=== PATIENT | female | born 2000 | race Caucasian/White ===

== ENCOUNTER → 2018-10-25 | Outpatient (CLI) | payer OTHER ==
[~2018-10-25] MED LIST: IOPAMIDOL (ISOVUE-300) 100 ML BTL ONE
== END ==
LOC: FIMAGING 08:51
PROVIDERS: ATTEND Physician Assistant
DX: R10.84 Generalized abdominal pain (principal)
CPT/HCPCS: Q9967

== ENCOUNTER 2018-11-22 08:29 | Day surgery (SDC) | payer OTHER ==
[~2018-11-22 08:29] MED LIST changes: -IOPAMIDOL (ISOVUE-300) 100 ML BTL ONE; +MIDAZOLAM 2 MG/2 ML VIAL IVP ONE; +SCOPOLAMINE HYDROBROMIDE 1 MG/3 DAYS PATCH TD ONE
[2018-11-22] MEDS ORDERED: ceFAZolin 2 GM/DEXTROSE 100 ML IV ONE (08:44)
[2018-11-22] MEDS ORDERED: ACETAMINOPHEN 500 MG TAB PO ONE (08:44)
[2018-11-22] MEDS ORDERED: PHENAZOPYRIDINE HCL 200 MG TAB PO ONE (08:44)
[2018-11-22] MEDS ORDERED: GABAPENTIN 300 MG CAP PO ONE (08:44)
[2018-11-22] MEDS ORDERED: LR 1,000 ML IV ONE (08:46)
--- NOTE | 2018-11-22 09:07 | PDHPUP ---
History & Physical Update H&P update statement: This history and physical update is based on an assessment of the patient which was completed after admission or registration (within 24 hours), but prior to the surgery/procedure. H&P update: H&P reviewed & patient examined, no change in patient's condition since H&P completed
--- NOTE | 2018-11-22 09:33 | PDANEPAE ---
ANE Past Medical History - Cardiovascular History Hx Hypertension: No Hx Arrhythmias: No Hx Chest Pain: No Hx Coronary Artery / Peripheral Vascular Disease: No Hx CHF / Valvular Disease: No Hx Palpitations: No - Pulmonary History Hx COPD: No Hx Asthma/Reactive Airway Disease: No Hx Recent Upper Respiratory Infection: No Hx Oxygen in Use at Home: No Hx Sleep Apnea: No Sleep Apnea Screening Result - Last Documented: Negative - Neurologic History Hx Cerebrovascular Accident: No Hx Seizures: No Hx Dementia: No - Endocrine History Hx Diabetes: No - Renal History Hx Renal Disorders: No - Liver History Hx Hepatic Disorders: No - Neurological & Psychiatric Hx Hx Neurological and Psychiatric Disorders: No - Cancer History Hx Cancer: No - Congenital Disorder History Hx Congenital Disorders: No - GI History Hx Gastrointestinal Disorders: No - Other Health History Other Health History: DYSPAREUNIA - Chronic Pain History Chronic Pain: Yes (ABD,PELVIC AREA,VAGINAL) - Surgical History Prior Surgeries: TONSILLECTOMY ANE Review of Systems Review of Systems: - Exercise capacity METS (RN): 4 METS ANE Patient History - Allergies Allergies/Adverse Reactions: No Known Allergies Allergy (Unverified 11/14/18 09:59) - Home Medications Home Medications: Bcp HS 11/14/18 [Last Taken 11/21/18] Herbals/Supplements -Info Only DAILY 11/14/18 [Last Taken 1 Week Ago ~11/15/18] Levothyroxine DAILY 11/14/18 [Last Taken 11/22/18 07:30] Nortriptyline HCl HS 11/14/18 [Last Taken 11/21/18] - NPO status NPO Since - Liquids (Date): 11/22/18 NPO Since - Liquids (Time): 07:30 NPO Since - Solids (Date): 11/21/18 NPO Since - Solids (Time): 19:00 - Smoking Hx Smoking Status: Never smoked - Family Anes Hx Family Hx Anesthesia Complications: NEG ANE Labs/Vital Signs - Vital Signs Blood Pressure: 123/88 Heart Rate: 108 Respiratory Rate: 18 O2 Sat (%): 99 Height: 160.02 cm Weight: 52.163 kg ANE Physical Exam - Airway Neck exam: FROM Mallampati Score: Class 1 - Pulmonary Pulmonary: clear to auscultation - Cardiovascular Cardiovascular: regular rate and rhythym - ASA Status ASA Status: II ANE Anesthesia Plan Anesthesia Plan: general endotracheal anesthesia
[2018-11-22] MEDS ORDERED: BUPIVACAINE/EPI 0.5% 30 ML SDV ONE (09:34)
[2018-11-22] MEDS ORDERED: HYDROmorphONE/DILAUDID 2 MG/ML INJ ONE ×2 (09:36→10:51)
[2018-11-22] MEDS ORDERED: PROPOFOL/EMULSION 500 MG/50 ML BOTTLE IV ONE ×2 (09:37→10:19)
[2018-11-22] MEDS ORDERED: PROPOFOL 200 MG/20 ML VIAL ONE (09:37)
[2018-11-22] MEDS ORDERED: MIDAZOLAM 2 MG/2 ML VIAL ONE (09:40)
[2018-11-22] MEDS ORDERED: LIDOCAINE 2% 5 ML SDV ONE (09:40)
[2018-11-22] MEDS ORDERED: DEXAMETHASONE 4 MG/ML VIAL ONE (09:45)
[2018-11-22] MEDS ORDERED: MEPERIDINE 25 MG/0.5 ML AMP IVP PRN (10:42)
[2018-11-22] MEDS ORDERED: ALBUTEROL 3 ML DEYVIAL IH PRN (10:42)
[2018-11-22] MEDS ORDERED: ONDANSETRON 4 MG/2 ML VIAL IVP PRN (10:42)
[2018-11-22] MEDS ORDERED: LR 500 ML IV PRN (10:42)
[2018-11-22] MEDS ORDERED: NALOXONE HCL 0.4 MG/ML INJ IVP PRN (10:42)
[2018-11-22] MEDS ORDERED: DIAZEPAM 5 MG/ML 1 ML SYR IVP PRN (10:42)
[2018-11-22] MEDS ORDERED: fentaNYL 100 MCG/2 ML INJ IVP PRN (10:42)
[2018-11-22] MEDS ORDERED: KETOROLAC 30 MG/1 ML SDV ONE (10:42)
[2018-11-22] MEDS ORDERED: ONDANSETRON 4 MG/2 ML VIAL ONE (10:42)
[2018-11-22] MEDS ORDERED: METOCLOPRAMIDE 10 MG/2 ML VIAL IVP PRN (10:42)
[2018-11-22] MEDS ORDERED: oxyCODONE IR 5 MG TAB PO PRN (10:42)
[2018-11-22] MEDS ORDERED: HYDROCODONE/APAP 5/325 TAB PO PRN (10:42)
[2018-11-22] MEDS ORDERED: PROMETHAZINE HCL 25 MG/ML INJ IVP PRN (10:42)
[2018-11-22] MEDS ORDERED: HYDROmorphONE/DILAUDID 2 MG/ML INJ IVP PRN (10:42)
[2018-11-22] MEDS ORDERED: DEXAMETHASONE 4 MG/ML VIAL IVP PRN (10:42)
[2018-11-22] MEDS ORDERED: SUGAMMADEX SODIUM 200 MG/2 ML VIAL IVP ONE (10:44)
--- NOTE | 2018-11-22 11:04 | POSTOPPROG ---
Post Op Note Date of Operation: 11/22/18 Surgeon: [facility] Admissions Officer: Anai Gutierrez Anesthesiologist: Ijeoma Anesthesia: GET(General Endotracheal) Pre-op Diagnosis: Dysmenorrhea Post-op Diagnosis: Same Procedure: Robotic excision of endo, bilat ureterolysis and ovarianpexy Inf/Abcess present in the surg proc area at time of surgery?: No EBL: Minimal Complications: None
--- NOTE | 2018-11-22 11:31 | GOP ---
DATE OF OPERATION: 11/02/2018 SURGEON: Nabeel Ibanez MD WEATHER FORCASTER: Anai Gutierrez CFA. ANESTHESIA: General. PREOPERATIVE DIAGNOSIS: Dysmenorrhea. POSTOPERATIVE DIAGNOSIS: 1. Dysmenorrhea. 2. Stage I endometriosis. PROCEDURE PERFORMED: FINDINGS: SPECIMENS: Pelvic peritoneum with endometriosis. ESTIMATED BLOOD LOSS: Scant. DESCRIPTION OF PROCEDURE: The patient was taken to the operating room where she was identified. Gen eral anesthesia was administered and found to be adequate. She was placed in the lithotomy position and prepared and draped in normal sterile fashion. A Mccord catheter was placed in her bladder. A Hu lka tenaculum was placed in the uterus for manipulation. A 1 cm infraumbilical incision was made with a scalpel. The Veress needle with CO2 gas flowing was a dvanced into the peritoneal cavity. The abdomen was then insufflated with carbon dioxide gas. The 1 2 mm trocar followed by the laparoscope were then inserted. The upper abdomen was unremarkable. The re was no evidence of endometriosis on either diaphragm, liver, stomach, gallbladder, spleen or bowel . Two lateral ports were placed in the right and 1 in the left under direct visualization. The emily ent was then placed in Trendelenburg position and the da Ari robot docked on the left side. The in struments were then brought into the abdominal cavity under direct visualization. The patient had yu btle vesicular endometriosis in the anterior and posterior cul-de-sac, as well as bilateral pelvic si dewalls. She had 2 small lesions in the right ovary and 2 on the left. The posterior cul-de-sac per itoneum was excised from the distal rectum up to the cervix, and laterally to the uterosacral ligamen ts. The anterior cul-de-sac was likewise excised. A bilateral ovariopexy was performed by attaching each ovary to the ipsilateral round ligaments with 3-0 Vicryl Rapide suture. A bilateral ureterolys is was required. The peritoneum at the pelvic brims was incised. The ureters were gently dissected free and lateralized off with the overlying peritoneum and endometriosis from the pelvic brim, down t o the uterine arteries. The pelvic sidewall peritoneum was then excised. The pelvis was irrigated w ith sterile saline and hemostasis was present. The robot was then undocked. The fascia was closed w ith 0 Vicryl, the skin with 4-0 Monocryl. Anesthesia was reversed. The patient was taken to the PAC U awake and in stable condition. PROCEDURES: 1. Robotic excision of endometriosis. 2. Bilateral ureterolysis. 3. Bilateral ovarian pexy. COMPLICATIONS: None. DISPOSITION: Patient stable to PACU. /[id number]/MODL
[2018-11-22] MEDS ORDERED: HYDROCODONE/APAP 5/325 TAB ONE (11:48)
--- NOTE | 2018-11-22 12:30 | POSTANESTH ---
Post Anesthetic Evaluation Cardiovascular Status: Normal, Stable Respiratory Status: Normal, Stable, Requires Airway Assist Level of Consciousness/Mental Status: Moderately Sleepy Pain Control: Adequate, Prn Tx Ordered Nausea/Vomiting Control: Adequate, Prn Tx Ordered Complications Possibly Related to Anesthesia: None Noted (Requiring oral airway and chin lift in PACU. Within 10 minutes, awake and able to participate in exam. )
[2018-11-22 13:32] VITALS: BP 112/62
[2018-11-23] MEDS ORDERED: PATCH REMOVAL 1 EA PATCH TD SCH (08:00)
== END 2018-11-22 13:20 | disposition home or self-care (01) ==
LOC: FSGY 08:29
PROVIDERS: ATTEND Obstetrics & Gynecology
DX: N80.3 Endometriosis of pelvic peritoneum (principal); N94.10 Unspecified dyspareunia; N94.819 Vulvodynia, unspecified
CPT/HCPCS: J0690; J1100; J1170; J1885; J2250; J2405; J2704